=== PATIENT | male | born 1995 | race Caucasian/White ===

== ENCOUNTER 2024-04-10 14:04 | Emergency (ER) | payer MEDICAID ==
[~2024-04-10] VITALS: Ht 182.9 cm; Wt 115.3 kg
[2024-04-10 14:09] VITALS: BP 125/77; PULSE 97; TEMP 98.5; O2SAT 98
[2024-04-10] MEDS ORDERED: ketorolac trometh. 30mg/ml inj. IM ONE (14:50)
[2024-04-10 15:19] VITALS: RESP 16
[2024-04-10] MEDS: ketorolac tromethamine 15mg/ml inj. IM ONE (15:19)
== END 2024-04-10 15:36 | disposition home or self-care (01) ==
LOC: ER 14:05
DX: M25.561 Pain in right knee (principal); M25.461 Effusion, right knee
CPT/HCPCS: 73564; 96372; 99283; J1885

== ENCOUNTER 2025-03-21 08:24 | Emergency (ER) | payer BC ==
[~2025-03-21] VITALS: Ht 182.9 cm; Wt 118.7 kg
[2025-03-21 08:29] VITALS: TEMP 97.6
[2025-03-21 09:12] LABS: BASOPHILS # (AUTO) 0.1 X10'3 (0-0.2); BASOPHILS % (AUTO) 0.5 % (0-1); EOSINOPHILS # (AUTO) 0.2 X10'3 (0-0.9); EOSINOPHILS % (AUTO) 1.4 % (0-6); HEMATOCRIT 42.2 % (42.0-52.0); HEMOGLOBIN 13.9 g/dl (14.0-17.9); LYMPHOCYTES # (AUTO) 3.2 X10'3 (1.1-4.8); LYMPHOCYTES % (AUTO) 25.9 % (21-51); MEAN CORPUSCULAR HEMOGLOBIN 25.6 PG (27.0-31.0); MEAN CORPUSCULAR HGB CONC 32.9 g/dL (33.0-36.5); MEAN CORPUSCULAR VOLUME 77.9 FL (78-98); MEAN PLATELET VOLUME 8.8 FL (7.4-10.4); MONOCYTES # (AUTO) 0.9 X10'3 (0-0.9); MONOCYTES % (AUTO) 7.2 % (2-12); PLATELET COUNT 333 X10'3 (140-440); RED BLOOD COUNT 5.42 X10'6 (4.70-6.10); RED CELL DISTRIBUTION WIDTH 13.7 % (11.5-14.5); WHITE BLOOD COUNT 12.4 X10'3 (4.5-11.0)
[2025-03-21 09:14] LABS: BILIRUBIN,URINE NEGATIVE (Neg); CLARITY,URINE CLEAR (Clear); COLOR,URINE YELLOW (Yellow); GLUCOSE, URINE NEGATIVE (Neg); KETONES,URINE NEGATIVE (Neg); LEUKOCYTE ESTERASE ,URINE NEGATIVE (Neg); NITRITES, URINE NEGATIVE (Neg); OCCULT BLOOD,URINE NEGATIVE (Neg); PROTEIN,URINE NEGATIVE (Neg)
--- NOTE | 2025-03-21 09:18 | Physician Documentation ---
History of Present Illness Chief Complaint: Abdominal Pain Stated Complaint: ABD PAIN Time Seen by MD: 09:12 Primary Medical Doctor: NONE Mode of Arrival: Ambulatory HPI 29-year-old male presents to the ED with three days of right lower quadrant abdominal pain. He states he has also developed nausea last day for what he believes is caused by not eating. Adds that his bowel movements have been on more loose and diarrhea at times. Denies any current vomiting. States he has all of his organs denies any subjective fevers.. States he does have a history of kidney stones denies any history of gallbladder issues or appendix issues Day of Onset: March 21, 2025 Medication Reconciliation Allergies: Coded Allergies: No Known Allergies (Unverified , 03/21/25) Scheduled PRN Hydrocodone Bit/Acetaminophen 5/325 MG ([place] 5/325 MG), 1 TAB PO Q6H PRN for pain Past Medical History Past Medical History: No Pertinent History Past Surgical History: no surgical history Lives with: Family Lives In: Home Occupation: unemployed Review of Systems All Other Systems at this time: Reviewed and Negative ROS As stated above in the HPI, otherwise all systems are reviewed and negative. Physical Exam Vital Signs: Temperature: 97.6, Source: Temporal, Heart Rate: 89, Respiratory Rate: 15, BP: 139/99, Pulse Oximetry: 98, Weight: 118.700 Physical Exam General: Alert, no apparent distress. Respiratory: Lungs clear, no respiratory distress. Cardiovascular: Regular rate and rhythm, no murmurs. Gastrointestinal: Soft, nontender, nondistended. Bowels sounds present. Negative CVA tenderness negative rebound tenderness. Neurologic: Oriented x4. Psychiatric: Normal mood and affect. Skin: Normal color, warm and dry. No edema, no ecchymosis. Progress Results/Orders Results/Orders Vital Signs 03/21/25 03/21/25 03/21/25 08:29 08:43 09:07 Temp 97.6 Pulse 92 89 Resp 18 15 15 B/P (MAP) 175/94 139/99 (112) Pulse Ox 99 98 Laboratory Tests Test 03/21/25 08:45 03/21/25 08:48 Urine Comment White Blood Count 12.4 H Red Blood Count 5.42 Hemoglobin 13.9 L Hematocrit 42.2 Mean Corpuscular Volume 77.9 L Mean Corpuscular Hemoglobin 25.6 L Mean Corpuscular Hemoglobin Concent 32.9 L Red Cell Distribution Width 13.7 Platelet Count 333 Mean Platelet Volume 8.8 Neutrophils (%) (Auto) 65.0 Lymphocytes (%) (Auto) 25.9 Monocytes (%) (Auto) 7.2 Eosinophils (%) (Auto) 1.4 Basophils (%) (Auto) 0.5 Neutrophils # (Auto) 8.0 H Lymphocytes # (Auto) 3.2 Monocytes # (Auto) 0.9 Eosinophils # (Auto) 0.2 Basophils # (Auto) 0.1 CBC Comment Chemistry Comments Medical Decision Making Findings Patient is given IV fluid Protonix and Zofran however he did not report any in increased or decreased pain rather he reports ongoing stabbing right lower quadrant pain. non Radiating. CT scan indicates epiploic appendagitis. Patient does have a mild white count which I could attribute to the vomiting and pain. Going to send him home with pain control and advised to follow up in the outpatient setting. Differential Dx:Considerations: Include: AAA, Angina/AK, Aortic dissection, A ppendicitis, Bowel obstruction, Cholangitis, Cholelithasis, Constipation, Diverticular disease, Esophageal rupture, Esophagitis, Gastritis/PUD, Gastroenteritis, GI hemorrhage, Hernia, Hepatitis, Inflammatory BD, Ischemic bowel, Pancreatitis, Porphyria, Testicular torsion, Trauma, intraabdominal, Urinary obstruction, Urinary tract infection, Urolithiasis, Other Departure Disposition: 01 HOME / SELF CARE / HOMELESS Impression: Primary Impression: Abdominal pain Condition: Stable Discharge Instructions: Abdominal Pain (Nonspecific) Additional Instructions: you have essentially a inflammation in the region where you are having pain. Usually resolves on its own. I sent a prescription to your pharmacy to help with the pain Referrals: NO PRIMARY CARE PROVIDER (PCP) Prescriptions Hydrocodone Bit/Acetaminophen 5/325 MG ([place] 5/325 MG) 5 Mg/325 Mg Tablet 1 TAB PO Q6H PRN for pain, #14 TAB Prov: BRANDON SUAREZ NP 03/21/25 Education Educated: Patient Signature Scribe Signature: t Attestation: The note accurately reflects work and decisions made by me.Brandon Javier NP 03/21/25 18:12 BRANDON SUAREZ NP March 21, 2025 09:18
[2025-03-21 09:22] LABS: UA COLLECTION TYPE URINAL
[2025-03-21 09:26] LABS: ALANINE AMINOTRANSFERASE 26 U/L (12-78); ALBUMIN 3.5 G/DL (3.4-5.0); ALBUMIN/GLOBULIN RATIO 0.9 (1.1-1.5); ALKALINE PHOSPHATASE 91 IU/L (46-116); AMYLASE 32 U/L (25-115); ANION GAP 9 (8-16); ASPARTATE AMINO TRANSFERASE 12 U/L (10-37); BILIRUBIN,TOTAL 0.5 MG/DL (0.1-1.0); BLOOD UREA NITROGEN 11 MG/DL (7-18); BUN/CREATININE RATIO 13.9 (10.0-20.0); CALCIUM 8.1 MG/DL (8.5-10.1); CHLORIDE 106 MMOL/L (99-107); CREATININE 0.79 MG/DL (0.60-1.10); GLUCOSE 136 MG/DL (70-104); LIPASE 29 U/L (16-77); POTASSIUM 3.8 MMOL/L (3.5-5.1); SODIUM 141 MMOL/L (135-145); TOTAL CARBON DIOXIDE 25.8 MMOL/L (24-32); TOTAL PROTEIN 7.5 G/DL (6.4-8.2); eCRCL 151 ML/MIN; eGFR > 90 ML/MIN
[2025-03-21] MEDS: ondansetron/PF 4mg/2ml inj IV ONE (09:41)
[2025-03-21] MEDS: normal saline 1000ML IV soln IVB ONE (09:42)
[2025-03-21] MEDS: pantoprazole 40 MG vial IV ONE (09:44)
--- NOTE | 2025-03-21 10:51 | RADIOLOGY REPORT ---
CT ABDOMEN AND PELVIS WITHOUT CONTRAST CLINICAL HISTORY: RLQ pain TECHNIQUE: Multiple contiguous axial images of the abdomen and pelvis without intravenous contrast. T he images were reformatted degenerate coronal and sagittal reconstructions. All CT scans at this medical facility are performed using dose modulation techniques as appropriate t o a performed exam including the following:Automated exposure control was utilized; adjustment of the MA and/or KV according to patient size; and use of iterative reconstruction technique. Radiation Dose Information: CT Dose: CTDI volume is 35 mGy. Dose-length product is 2012 mGy*cm Comparison: None FINDINGS: Evaluation of the abdomen and pelvis is limited without intravenous contrast. There is diffuse fatty infiltration of the liver. The gallbladder, pancreas, kidneys, adrenal glan ds, and spleen appear within normal limits. There is no gross evidence of abdominal lymphadenopathy. There is no free fluid or free air. The stomach grossly appears unremarkable. The small and large bowel loops demonstrate normal caliber and distribution. There is moderate fat stranding in the right lower quadrant abdomen mostly along t he lateral margins of the cecum.. There is a normal caliber air-filled appendix seen. There are multi ple scattered small right lower quadrant mesenteric lymph nodes, the largest measuring 9 mm in the sh ort axis. The abdominal aorta and IVC appear within normal limits. The bladder appears unremarkable for the degree of distention. Pelvic organ appears within normal woods its. There is no gross evidence of a pelvic mass. There is small amount of free fluid in the pelvis. Lung bases are clear. There is no acute osseous abnormality. IMPRESSION: 1. There is moderate fat stranding in the right lower quadrant abdomen, mostly along the lateral jason ins of the cecum. There is a normal caliber air-filled appendix seen. Findings are atypical for acute appendicitis . Epiploic appendagitis is a consideration. 2. Scattered small right lower quadrant mesenteric lymph nodes may be reactionary. 3. Hepatic steatosis. Critical findings discussed with Dr. Belle by Dr. Dane Hampton via phone on 03/21/2025 10:49 AM. HS:Y
[2025-03-21] MEDS ORDERED: HYDR-3965 PO (11:12)
[2025-03-21 11:44] VITALS: BP 116/56; PULSE 68; RESP 15; O2SAT 96
[2025-03-21] MEDS: HYDROcodone/acetaminophen 10/325mg tab PO ONE (11:44)
== END 2025-03-21 12:00 | disposition home or self-care (01) ==
LOC: ER 08:25
DX: R10.31 Right lower quadrant pain (principal); Z87.442 Personal history of urinary calculi; Z56.0 Unemployment, unspecified
CPT/HCPCS: 36415; 74176; 80053; 81003; 82150; 83690; 85025; 96361; 96374; 96375; 99285; J2405; J2470; J7030

== ENCOUNTER 2025-03-25 08:13 | Emergency (ER) | payer BC ==
[~2025-03-25] VITALS: Ht 182.9 cm; Wt 89.9 kg
[~2025-03-25 08:13] MED LIST: HYDR-3965 PO
--- NOTE | 2025-03-25 08:39 | Physician Documentation ---
History of Present Illness ~ Chief Complaint: Abdominal Pain w/vomiting Stated Complaint: N/V Time Seen by MD: 08:39 Primary Medical Doctor: NONE HPI 29-year-old male, overall healthy, presenting with worsening abdominal pain, diarrhea, now vomiting He tells me that over the last week he has been ill, including right lower abdominal pain and diarrhea. He was seen here in the emergency department recently, without a specific diagnosis. Since that time, he has had worsening symptoms including worsening diarrhea. This morning he says he had at least 8 or 9 episodes of watery stool. Today he also started to have vomiting. He has not been able to keep down any food, fluids or medications this morning. The abdominal pain remains specific to the right lower abdomen, is constant, nothing makes it better, otherwise no significant changes. No fevers, respiratory symptoms, or blood in the stool or vomit. No known sick contacts. Medication Reconciliation Allergies: Coded Allergies: No Known Allergies (Unverified , 03/21/25) Scheduled Ciprofloxacin HCl (Cipro), 1 TAB PO Q12H Metronidazole* (Flagyl*), 1 TAB PO Q8H Scheduled PRN Hydrocodone Bit/Acetaminophen 5/325 MG ([place] 5/325 MG), 1 TAB PO Q6H PRN for pain ONDANSETRON ODT 4mg tablet (Ondansetron Odt), 1 TAB PO Q6H PRN PRN for nausea/vomiting Past Medical History Past Medical History: No Pertinent History Past Surgical History: no surgical history Lives with: Family Lives In: Home Occupation: unemployed Review of Systems Constitutional: Denies: fever Gastrointestinal: Reports: abdominal pain, nausea, vomiting, diarrhea Physical Exam Vital Signs: Temperature: 98.0, Source: Temporal, Heart Rate: 104, Respiratory Rate: 16, BP: 134/93, Pulse Oximetry: 98, Weight: 89.900 Physical Exam General: This is a tired-appearing but otherwise nontoxic appearing young man lying in bed. No vomiting noted while I am in the room HEENT: Atraumatic, oropharynx appears dry Heart: Mild tachycardic, appears regular Lungs: normal work of breathing, normal oxygen saturation on room air Abdomen: Soft, nondistended. The patient has focal tenderness to palpation in the right lower quadrant only, otherwise nontender. No rebound or guarding Neuro: Alert and oriented, no focal deficits Psychiatric: Appears tired but is cooperative with exam Progress Results/Orders Results/Orders Orders - DONNA WELDON MD Ct Abdomen Pelvis (03/25/25 12:01) General Nursing Order (03/25/25 ) Completed Orders - DONNA WELDON MD Cbc/Diff (03/25/25 08:22) BMP (03/25/25 08:22) Lipase (03/25/25 08:22) CMP (03/25/25 08:22) Ondansetron Inj. (Zofran 4mg/2ml Vial) (03/25/25 08:50) Normal Saline 1000ml (Sodium Chloride 10 (03/25/25 08:50) Ct Abdomen Pelvis (03/25/25 12:01) Iohexol 300mg/Ml 100ml Inj. (Omnipaque-3 (03/25/25 11:47) Ketorolac Trometh 30mg/Ml Vial (Toradol (03/25/25 12:20) Ondansetron Inj. (Zofran 4mg/2ml Vial) (03/25/25 12:55) Ciprofloxacin Tablet (Cipro Tablet) (03/25/25 13:05) Metronidazole Tablet (Flagyl Tablet) (03/25/25 13:05) Medications Received in ER Medications (Trade) Dose Ordered Sig/Radha Route PRN Reason Start Time Stop Time Status Last Admin Dose Admin (Toradol inj. 30mg/ml) 30 mg ONCE ONCE IV 03/25/25 12:20 03/25/25 12:21 DC 03/25/25 12:42 30 MG (Zofran 4mg/2ml vial) 4 mg ONCE ONCE IV 03/25/25 12:55 03/25/25 12:56 DC 03/25/25 13:24 4 MG (Cipro tablet) 500 mg ONCE ONCE PO 03/25/25 13:05 03/25/25 13:08 DC 03/25/25 13:25 500 MG (Flagyl tablet) 500 mg ONCE ONCE PO 03/25/25 13:05 03/25/25 13:08 DC 03/25/25 13:25 500 MG Vital Signs 03/25/25 03/25/25 03/25/25 03/25/25 08:19 08:40 08:43 09:18 Temp 98.0 Pulse 104 102 99 Resp 16 16 12 B/P (MAP) 134/93 123/83 (96) 133/86 (102) Pulse Ox 98 97 94 O2 Flow Rate 0 0 03/25/25 14:01 Temp 98.0 Pulse 80 Resp 16 B/P (MAP) 127/84 Pulse Ox 99 Laboratory Tests Test 03/25/25 08:28 White Blood Count 17.3 H Red Blood Count 5.61 Hemoglobin 14.5 Hematocrit 43.3 Mean Corpuscular Volume 77.2 L Mean Corpuscular Hemoglobin 25.8 L Mean Corpuscular Hemoglobin Concent 33.4 Red Cell Distribution Width 13.6 Platelet Count 347 Mean Platelet Volume 8.7 Neutrophils (%) (Auto) 84.9 H Lymphocytes (%) (Auto) 7.9 L Monocytes (%) (Auto) 6.1 Eosinophils (%) (Auto) 0.8 Basophils (%) (Auto) 0.3 Neutrophils # (Auto) 14.7 H Lymphocytes # (Auto) 1.4 Monocytes # (Auto) 1.1 H Eosinophils # (Auto) 0.1 Basophils # (Auto) 0.0 CBC Comment Sodium Level 137 Potassium Level 4.0 Chloride Level 103 Carbon Dioxide Level 24.8 Anion Gap 9 Blood Urea Nitrogen 11 Creatinine 1.02 Estimated GFR/1.73 m2 86 BUN/Creatinine Ratio 10.8 Glucose Level 157 H Calcium Level 8.8 Total Bilirubin 0.7 Aspartate Amino Transf (AST/SGOT) 20 Alanine Aminotransferase (ALT/SGPT) 35 Alkaline Phosphatase 91 Total Protein 8.3 H Albumin 3.9 Globulin 4.4 H Albumin/Globulin Ratio 0.9 L Lipase 38 Chemistry Comments Re-Evaluation Re-Evaluation : Re-Evaluation Time: 11:01 Re-Evaluation: Unchanged Progress The patient continues to have pain, states his nausea improved but now has returned. I had a long shared decision-making conversation with them regarding the possibilities of a repeat CT scan versus treatment with antibiotics and o ther symptomatic treatment. After this discussion, he would like to proceed with a repeat CT scan, after understanding the risks of radiation exposure. EKG/XRAY/CT/US/VASC/MRI CT : Impression I personally reviewed the CT scan, and this shows inflammatory changes in the right lower abdomen, but the appendix appears normal and there was no bowel ob struction or evidence of abscess Medical Decision Making Additional info obtained from: old records Findings Per chart review, the patient was seen here in the emergency department 4 days ago, for abdominal pain and diarrhea. He had a CT scan that showed mild inflammatory changes in the right lower quadrant with a normal appendix. Mild leukocytosis. He was discharged with symptomatic treatment. Diff Dx N/V/D:Considerations: Include: Dehydration, Diarrhea - bacterial, Diarrhea - parasitic, Diarrhea - viral, Electrolyte imbalance, Food poisoning, Gastroenteritis, GI bleed, Hypovolemia, Inflammatory BD, Renal failure Additional Comments Here in the ED, the patient presents with ongoing right lower quadrant abdominal pain, diarrhea, and now he has developed a vomiting. An IV was established and he was given Zofran and IV fluids for hydration. Labs returned with a slightly worsening leukocytosis, but no other acute abnormality. After shared decision- making conversation we proceeded with a repeat CT scan given his ongoing right lower quadrant pain. This shows inflammatory changes but no appendicitis or other surgical emergency. Overall his presentation seems most consistent with a viral or bacterial colitis or enteritis. He will be treated with oral antibiotics and given Zofran for nausea. Return precautions given if he has a uncontrollable vomiting or other worsening symptoms. Departure Time of Disposition: 13:42 Disposition: HOME / SELF CARE / HOMELESS Impression: Primary Impression: Nausea vomiting and diarrhea Additional Impression: Enteritis Condition: Improved Discharge Instructions: Colitis Referrals: NO PRIMARY CARE PROVIDER (PCP) Prescriptions ONDANSETRON ODT 4mg tablet (ONDANSETRON ODT) 4 Mg Tab.rapdis 1 TAB PO Q6H PRN PRN for nausea/vomiting for 5 Days, #20 TAB 0 Refills Prov: DONNA WELDON MD 03/25/25 Metronidazole* (Flagyl*) 500 Mg Tablet 1 TAB PO Q8H for 7 Days, #21 TAB Prov: DONNA WELDON MD 03/25/25 Ciprofloxacin HCl (Cipro) 500 Mg Tablet 1 TAB PO Q12H for 7 Days, #14 TAB Prov: DONNA WELDON MD 03/25/25 Education Educated: Patient Educated regarding: diagnosis, need for follow up Signature Scribe Signature: bethanie Attestation: DONNA Peres MD March 25, 2025 08:39
[2025-03-25 08:49] LABS: BASOPHILS % (AUTO) 0.3 % (0-1); EOSINOPHILS # (AUTO) 0.1 X10'3 (0-0.9); EOSINOPHILS % (AUTO) 0.8 % (0-6); HEMATOCRIT 43.3 % (42.0-52.0); HEMOGLOBIN 14.5 g/dl (14.0-17.9); LYMPHOCYTES # (AUTO) 1.4 X10'3 (1.1-4.8); LYMPHOCYTES % (AUTO) 7.9 % (21-51); MEAN CORPUSCULAR HEMOGLOBIN 25.8 PG (27.0-31.0); MEAN CORPUSCULAR HGB CONC 33.4 g/dL (33.0-36.5); MEAN CORPUSCULAR VOLUME 77.2 FL (78-98); MEAN PLATELET VOLUME 8.7 FL (7.4-10.4); MONOCYTES # (AUTO) 1.1 X10'3 (0-0.9); MONOCYTES % (AUTO) 6.1 % (2-12); NEUTROPHILS # (AUTO) 14.7 X10'3 (1.8-7.7); NEUTROPHILS % (AUTO) 84.9 % (42-75); PLATELET COUNT 347 X10'3 (140-440); RED BLOOD COUNT 5.61 X10'6 (4.70-6.10); RED CELL DISTRIBUTION WIDTH 13.6 % (11.5-14.5); WHITE BLOOD COUNT 17.3 X10'3 (4.5-11.0)
[2025-03-25 08:59] LABS: ALANINE AMINOTRANSFERASE 35 U/L (12-78); ALBUMIN 3.9 G/DL (3.4-5.0); ALBUMIN/GLOBULIN RATIO 0.9 (1.1-1.5); ALKALINE PHOSPHATASE 91 IU/L (46-116); ANION GAP 9 (8-16); ASPARTATE AMINO TRANSFERASE 20 U/L (10-37); BILIRUBIN,TOTAL 0.7 MG/DL (0.1-1.0); BLOOD UREA NITROGEN 11 MG/DL (7-18); BUN/CREATININE RATIO 10.8 (10.0-20.0); CALCIUM 8.8 MG/DL (8.5-10.1); CHLORIDE 103 MMOL/L (99-107); CREATININE 1.02 MG/DL (0.60-1.10); GLUCOSE 157 MG/DL (70-104); LIPASE 38 U/L (16-77); SODIUM 137 MMOL/L (135-145); TOTAL CARBON DIOXIDE 24.8 MMOL/L (24-32); TOTAL PROTEIN 8.3 G/DL (6.4-8.2); eCRCL 117 ML/MIN; eGFR 86 ML/MIN
[2025-03-25] MEDS: ondansetron/PF 4mg/2ml inj IV ONE ×2 (09:09→13:24)
[2025-03-25] MEDS: normal saline 1000ml 1,000 ML IV ONE (09:10)
[2025-03-25] MEDS ORDERED: iohexol 300mg/ml 100ml inj. ONE (11:47)
--- NOTE | 2025-03-25 12:29 | RADIOLOGY REPORT ---
Exam: CT CT ABDOMEN PELVIS W/ IV CONTRAST History: RLQ pain, worsening, diarrhea TECHNIQUE: Multiple contiguous axial CT images of the abdomen and pelvis were obtained with intraveno us contrast. The images were reformatted to generate coronal and sagittal reconstructions. 100 cc of Omnipaque 350 contrast was injected intravenously. All CT scans at this medical facility are performed using dose modulation techniques as appropriate t o a performed exam including the following:Automated exposure control was utilized; adjustment of the MA and/or KV according to patient size; and use of iterative reconstruction technique. Radiation Dose Information: CT Dose: CTDI volume is 34 mGy. Dose-length product is 1966 mGy*cm Comparison: CT CT ABDOMEN PELVIS on DOS: 03/21/25 FINDINGS: There is fatty infiltration of the liver. The gallbladder, pancreas, kidneys, adrenal glands, and sp marvin appear within normal limits. Again seen are multiple nonspecific subcentimeter right lower quadrant mesenteric lymph nodes measur ing up to 9 mm. There is no free fluid or free air. The stomach grossly appears unremarkable. The small and large bowel loops demonstrate normal caliber. There are multiple fluid-filled small bowel loops. There is mural enhancement and mild thickening i n the terminal ileum. There has been some interval decrease in fat stranding in the right lower quadrant abdomen along the lateral margins of the cecum. Again seen is a normal caliber air-filled appendix. The abdominal aorta and IVC appear within normal limits. The bladder appears within normal limits the degree of distention. Pelvic organ is unremarkable. Ther e is no evidence of a pelvic mass or lymphadenopathy. There is no free fluid collection. Lung bases are clear. There is no acute osseous abnormality. IMPRESSION: 1. There are multiple fluid-filled small bowel loops. There is mural enhancement and mild thickening in the terminal ileum. Findings are suggestive of enteritis. Clinical correlation for inflammatory melissa wel disease is also recommended.. 2. There has been some interval decrease in fat stranding in the right lower quadrant abdomen along t he lateral margins of the cecum. Again seen is a normal caliber air-filled appendix. 3. Redemonstrated are multiple nonspecific subcentimeter right lower quadrant mesenteric lymph nodes. 4. Hepatic steatosis. HS:Y
[2025-03-25] MEDS: ketorolac trometh 30MG/ML vial 30 MG/ML VIAL IV ONE (12:42)
[2025-03-25] MEDS: metroNIDAZOLE 500mg tablet PO ONE (13:25)
[2025-03-25] MEDS: ciprofloxacin 250mg tablet PO ONE (13:25)
[2025-03-25] MEDS ORDERED: METR-159 PO (13:45)
[2025-03-25] MEDS ORDERED: ONDA-243 PO (13:45)
[2025-03-25] MEDS ORDERED: CIPR-259 PO (13:45)
[2025-03-25 14:01] VITALS: BP 127/84; PULSE 80; RESP 16; TEMP 98; O2SAT 99
== END 2025-03-25 14:00 | disposition home or self-care (01) ==
LOC: ER 08:14
DX: K52.9 Noninfective gastroenteritis and colitis, unspecified (principal); R11.2 Nausea with vomiting, unspecified; R19.7 Diarrhea, unspecified; Z56.0 Unemployment, unspecified
CPT/HCPCS: 36415; 74177; 80053; 83690; 85025; 96361; 96374; 96375; 96376; 99285; J1885; J2405; J7030; Q9967

== ENCOUNTER 2025-03-30 17:35 | Inpatient (IN) | payer BC ==
[~2025-03-30] VITALS: Ht 182.9 cm; Wt 116.8 kg
[~2025-03-30 17:35] MED LIST changes: +CIPR-259 PO; +METR-159 PO; +ONDA-243 PO
--- NOTE | 2025-03-30 18:38 | Physician Documentation ---
History of Present Illness ~ Chief Complaint: Flank Pain Stated Complaint: ABDOMINAL PAIN Time Seen by MD: 18:32 Primary Medical Doctor: NONE HPI Patient presents to the emergency room with right lower quadrant pain that has now traveled to his right flank and traveling into his right testicle. This is 3rd visit for similar complaint. Initially CT scan was performed which showed some inflammation in his terminal ileum, 2nd CT scan showed similar results. He was put on a course of pain medicine as well as Cipro Flagyl. He reports compliance with the Cipro Flagyl. Subjective fevers. Positive nausea and vomiting. Loose bowel movements. Positive dysuria. It seems to all be progressing over the past two weeks. Medication Reconciliation Allergies: Coded Allergies: No Known Allergies (Unverified , 03/30/25) Scheduled Ciprofloxacin HCl (Cipro), 1 TAB PO Q12H Metronidazole* (Flagyl*), 1 TAB PO Q8H Scheduled PRN Hydrocodone Bit/Acetaminophen 5/325 MG ([place] 5/325 MG), 1 TAB PO Q6H PRN for pain ONDANSETRON ODT 4mg tablet (Ondansetron Odt), 1 TAB PO Q6H PRN PRN for nausea/vomiting Past Medical History Past Medical History: No Pertinent History Past Surgical History: no surgical history Lives with: Family Lives In: Home Occupation: unemployed Review of Systems ROS All review of systems negative except as per HPI Physical Exam Vital Signs: Temperature: 98.4, Source: Oral, Heart Rate: 96, Respiratory Rate: 18, BP: 133/89, Pulse Oximetry: 98, Weight: 116.850 Oxygen Flow Rate: 0 Physical Exam General: Patient is awake, alert, oriented x4 in no acute distress Head: Normocephalic and atraumatic. Eyes: Conjunctival normal. EOMI. PERRL. ENT: Mucous membranes dry. Neck: Supple, trachea is midline. Chest: Clear to auscultation bilaterally without rales, rhonchi, or wheezes. There is no accessory muscle use or retractions. Cardiac: Tachycardic and regular without murmurs, gallops, or rubs. Abd: Soft, nondistended, tenderness to palpation to right lower quadrant and right flank Progress Results/Orders Results/Orders Orders - PAUL NAPIER MD Culture Blood (03/30/25 18:41) Ct Abdomen Pelvis (03/30/25 19:45) Zithromax 500 Mg In Ns 250 Mls (03/30/25 21:45) Rocephin 1 Gm In 50ml D5w (03/30/25 21:45) Page Hospitalist (03/30/25 21:44) Fill Out Med Reconciliation (03/30/25 21:44) Completed Orders - PAUL NAPIER MD Cbc/Diff (03/30/25 18:41) MG (03/30/25 18:41) Normal Saline 1000ml (Sodium Chloride 10 (03/30/25 18:45) Procalcitonin (03/30/25 18:41) BMP (03/30/25 18:41) Lacticsepsis (03/30/25 18:41) Ondansetron Inj. (Zofran 4mg/2ml Vial) (03/30/25 18:45) Morphine 4mg/Ml Inj. (Morphine Inj.) (03/30/25 18:45) Ua W/Microscopic, Cult If Ind (03/30/25 18:46) Ct Abdomen Pelvis (03/30/25 19:45) Iohexol 300mg/Ml 100ml Inj. (Omnipaque-3 (03/30/25 19:52) Medications Received in ER Medications (Trade) Dose Ordered Sig/Radha Route PRN Reason Start Time Stop Time Status Last Admin Dose Admin (sodium chloride 1000ml IV soln) 2,000 ml ONCE ONCE IV 03/30/25 18:45 03/30/25 18:46 DC 03/30/25 18:55 2,000 ML (Zofran 4mg/2ml vial) 8 mg ONCE ONCE IV 03/30/25 18:45 03/30/25 18:46 DC 03/30/25 18:56 8 MG (morphine inj.) 4 mg ONCE ONCE IV 03/30/25 18:45 03/30/25 18:46 DC 03/30/25 18:56 4 MG Vital Signs 03/30/25 03/30/25 03/30/25 03/30/25 17:40 18:36 18:56 19:26 Temp 98.4 98.4 Pulse 105 96 Resp 18 18 14 14 B/P (MAP) 165/93 133/89 (104) Pulse Ox 100 98 O2 Flow Rate 0 03/30/25 03/30/25 19:31 20:03 Temp 98.4 Pulse 105 Resp 14 16 B/P (MAP) 146/92 (110) Pulse Ox 98 O2 Flow Rate 0 Laboratory Tests Test 03/30/25 18:46 03/30/25 18:59 Urine Specimen Description Cln catch midstream Urine Color Yellow Urine Clarity Clear Urine pH 7.5 Urine Specific [place] >=1.030 Urine Protein Trace Urine Glucose (UA) Negative Urine Ketones Negative Urine Occult Blood Negative Urine Nitrite Negative Urine Bilirubin Negative Urine Urobilinogen 0.2 Urine Leukocyte Esterase Negative Urine RBC 0-2 Urine WBC None seen Urine Squamous Epithelial Cells None seen Urine Bacteria None seen Urine Mucus None seen Urine Culture Indicated Not ind Volume Urine Centrifuged 10 ml Urine Comment White Blood Count 10.3 Red Blood Count 4.94 Hemoglobin 12.7 L Hematocrit 38.2 L Mean Corpuscular Volume 77.3 L Mean Corpuscular Hemoglobin 25.8 L Mean Corpuscular Hemoglobin Concent 33.3 Red Cell Distribution Width 13.2 Platelet Count 303 Mean Platelet Volume 8.5 Neutrophils (%) (Auto) 77.2 H Lymphocytes (%) (Auto) 10.0 L Monocytes (%) (Auto) 11.8 Eosinophils (%) (Auto) 0.6 Basophils (%) (Auto) 0.4 Neutrophils # (Auto) 8.0 H Lymphocytes # (Auto) 1.0 L Monocytes # (Auto) 1.2 H Eosinophils # (Auto) 0.1 Basophils # (Auto) 0.0 CBC Comment Sodium Level 138 Potassium Level 3.8 Chloride Level 103 Carbon Dioxide Level 26.5 Anion Gap 9 Blood Urea Nitrogen 11 Creatinine 1.48 H Estimated GFR/1.73 m2 56 BUN/Creatinine Ratio 7.4 L Glucose Level 110 H Lactic Acid Level 1.2 Calcium Level 8.5 Magnesium Level 1.8 Albumin 3.5 Procalcitonin 0.16 Chemistry Comments Microbiology Date/Time Source Procedure Growth Status 03/30/25 19:02 Blood Arm Left Blood Culture - Preliminary NEGATIVE (LESS THAN 24 HOURS) Resulted Medical Decision Making Findings Patient presented to the emergency room with continued right lower quadrant pain. He has been treated for empirical appendicitis recently. No fevers. He states he now has a different pain that has radiating to his testicle and he believes it may be a kidney stone. Also endorses cough. Differentials include but are not limited to appendicitis kidney stone diverticulitis intra-abdominal abscess sepsis therefore emergent labs and imaging indicated. Labs show improved white blood cell count and repeat CT scans confirms the diagnosis of kidney stone. Of note patient has pneumonia and he is on Cipro and Flagyl and reports compliance. This is new compared to previous. He is also suffering from kidney injury. I suspect that the acute kidney injury from dehydration he is clinically he is dehydrated and IV fluids has been initiated. As he has already been on Cipro with developing pneumonia offered admission and given risks versus benefits patient would prefer to be admitted. IV antibiotics and IV fluids initiated. Departure Admitted to Inpatient Unit: yes, to hospitalist Impression: Primary Impression: Acute kidney injury Additional Impressions: Kidney stone Pneumonia Condition: Guarded Referrals: NO PRIMARY CARE PROVIDER (PCP) Signature Scribe Signature: No scribe Attestation: The note accurately reflects work and decisions made by me.Paul Napier MD 03/30/25 21:51 PAUL NAPIER MD March 30, 2025 18:38
[2025-03-30] MEDS: normal saline 1000ML IV soln IV ONE (18:55)
[2025-03-30] MEDS: ondansetron/PF 4mg/2ml inj IV ONE (18:56)
[2025-03-30] MEDS: morphine 4 MG/ML inj SYRINge IV ONE (18:56)
[2025-03-30 19:15] LABS: BASOPHILS % (AUTO) 0.4 % (0-1); EOSINOPHILS # (AUTO) 0.1 X10'3 (0-0.9); EOSINOPHILS % (AUTO) 0.6 % (0-6); HEMATOCRIT 38.2 % (42.0-52.0); HEMOGLOBIN 12.7 g/dl (14.0-17.9); MEAN CORPUSCULAR HEMOGLOBIN 25.8 PG (27.0-31.0); MEAN CORPUSCULAR HGB CONC 33.3 g/dL (33.0-36.5); MEAN CORPUSCULAR VOLUME 77.3 FL (78-98); MEAN PLATELET VOLUME 8.5 FL (7.4-10.4); MONOCYTES # (AUTO) 1.2 X10'3 (0-0.9); MONOCYTES % (AUTO) 11.8 % (2-12); NEUTROPHILS % (AUTO) 77.2 % (42-75); PLATELET COUNT 303 X10'3 (140-440); RED BLOOD COUNT 4.94 X10'6 (4.70-6.10); RED CELL DISTRIBUTION WIDTH 13.2 % (11.5-14.5); WHITE BLOOD COUNT 10.3 X10'3 (4.5-11.0)
[2025-03-30 19:19] LABS: BILIRUBIN,URINE NEGATIVE (Neg); CLARITY,URINE CLEAR (Clear); COLOR,URINE YELLOW (Yellow); GLUCOSE, URINE NEGATIVE (Neg); KETONES,URINE NEGATIVE (Neg); LEUKOCYTE ESTERASE ,URINE NEGATIVE (Neg); OCCULT BLOOD,URINE NEGATIVE (Neg); PH,URINE 7.5 (4.8-8.0); PROTEIN,URINE TRACE mg/dl (Neg); UROBILINOGEN,URINE 0.2 E.U/dL (0.2-1.0)
[2025-03-30 19:24] LABS: NITRITES, URINE NEGATIVE (Neg); UA COLLECTION TYPE CLN CATCH MIDSTREAM
[2025-03-30 19:26] LABS: ALBUMIN 3.5 G/DL (3.4-5.0); ANION GAP 9 (8-16); BLOOD UREA NITROGEN 11 MG/DL (7-18); BUN/CREATININE RATIO 7.4 (10.0-20.0); CALCIUM 8.5 MG/DL (8.5-10.1); CHLORIDE 103 MMOL/L (99-107); CREATININE 1.48 MG/DL (0.60-1.10); GLUCOSE 110 MG/DL (70-104); MAGNESIUM 1.8 MG/DL (1.5-2.4); POTASSIUM 3.8 MMOL/L (3.5-5.1); SODIUM 138 MMOL/L (135-145); TOTAL CARBON DIOXIDE 26.5 MMOL/L (24-32); eCRCL 81 ML/MIN; eGFR 56 ML/MIN
[2025-03-30 19:31] LABS: RBC,URINE 0-2 /HPF (0-2); WBC,URINE NONE SEEN /HPF (0-4)
[2025-03-30 19:32] LABS: BACTERIA,URINE NONE SEEN /HPF (Neg); MUCUS STRANDS NONE SEEN /LPF (Neg); SQUAMOUS EPITHELIAL CELL,UR NONE SEEN /LPF (FEW)
[2025-03-30] MEDS ORDERED: iohexol 300mg/ml 100ml inj. ONE (19:52)
--- NOTE | 2025-03-30 20:43 | RADIOLOGY REPORT ---
CLINICAL HISTORY: right abd pain nausea and vomiting TECHNIQUE: CT of the abdomen and pelvis was performed with intravenous contrast. This exam was perfor med according to our departmental dose optimization program. Up-to-date CT equipment and radiation do se reduction techniques are utilized as appropriate. CTDIVol: 34.71+ 0.21 mGy DLP: 2175.32 mGy-cm WID: COMPARISON: CT CT ABDOMEN PELVIS W/ IV CONTRAST on DOS: 03/25/25 FINDINGS: Lower Thorax: Mild left pleural effusion. Normal-sized heart. Clustered nodular and consolidative op acities in the lingula. A few patchy ground-glass opacities in the right lower lobe. Liver and Biliary system: Mild hepatomegaly measuring 19 cm craniocaudal. Otherwise unremarkable. Spleen: Mild splenomegaly. Adrenal Glands and Kidneys: Normal adrenal glands. Normal left kidney. There is a 1-2 mm calculus in the distal right ureter causing mild right hydroureteronephrosis and delayed right nephrogram. Pancreas and Retroperitoneum: Unremarkable. Aorta and Major Vessels: Unremarkable. Bowel, Mesentery and Peritoneal space: Normal caliber small and large bowel. Normal appendix. There i s mild wall thickening and mucosal enhancement of the terminal ileum. No free air or fluid collection . Pelvis: Unremarkable. Abdominal wall and Osseous Structures: No destructive osseous lesion. Small disc osteophyte complex a t L4-L5. Tiny fat containing umbilical hernia. IMPRESSION: 1. Obstructing 1-2 mm calculus in the distal right ureter causing mild right hydroureteronephrosis an d delayed right nephrogram. 2. Mild wall thickening and enhancement of the terminal ileum which could be infectious or inflammato ry terminal ileitis. 3. A few patchy ground-glass opacities in the right lower lobe and clustered nodular and consolidativ e opacities in the lingula likely multifocal pneumonia. 4. Mild hepatosplenomegaly.
[2025-03-30] MEDS: CefTRIAXone/D5W-Rocephin 1gm 50 ML IV ONE (22:09)
[2025-03-30] MEDS ORDERED: HYDROcodone/acetaminophen 10/325mg tab PO PRN (22:10)
[2025-03-30] MEDS ORDERED: potassium Cl 20 mEq SR tablet PO PRN ×2 (22:10)
[2025-03-30] MEDS ORDERED: magnesium sulf-water 4G/100mL 100 ML IV PRN (22:10)
[2025-03-30] MEDS ORDERED: potassium Cl 40MEQ/1/2NS 520ml 520 ML IV PRN (22:10)
[2025-03-30] MEDS ORDERED: mag hydrox/Alum hydrox/simeth 30ml oral suspension PO PRN (22:10)
[2025-03-30] MEDS ORDERED: HYDROcodone/acetaminophen 5mg/325mg tablet PO PRN (22:10)
[2025-03-30] MEDS ORDERED: ondansetron/PF 4mg/2ml inj IV PRN (22:10)
[2025-03-30] MEDS ORDERED: magnesium hydroxide 30ml (MOM) UD suspension PO PRN (22:10)
[2025-03-30] MEDS ORDERED: magnesium Cl slow-release 64mg tablet PO PRN (22:10)
[2025-03-30] MEDS ORDERED: magnesium sulf-water 2g/50mL 50 ML IV PRN (22:10)
[2025-03-30] MEDS ORDERED: acetaminophen 325mg tablet PO PRN (22:10)
[2025-03-30 22:55] VITALS: BP 139/80; PULSE 98; RESP 18; TEMP 99; O2SAT 97
--- NOTE | 2025-03-30 22:55 | HISTORY AND PHYSICAL-Residence ---
History & Physical Providers to CC Resident Creating Document: SINAN HODGSON, RES ~ History of Present Illness Primary Medical Doctor: NONE Reason for Admit\Complaint: Right flank pain History of Present Illness 29-year-old male patient without significant past medical history came to the hospital with chief complaint of right flank pain. The patient endorses that approximately 1-1/2 week ago he started having pain localized in the right lower abdomen, sharp type, 8/10 in intensity, without radiation reason for which she decided to come to the emergency department. At that time CT scan was obtained due to concern of acute appendicitis with negative result. The patient was discharged home with pain medication. After two days with the resolution of symptoms the patient decided to come back again to the emergency department, another CT scan was obtained the patient was diagnosed with bacterial colitis reason for which the patient was discharged with antibiotics and pain medication based on ciprofloxacin and metronidazole. After seven days of treatment with the antibiotics the patient did not report any improvement, associated to his pain the patient now endorses pain localized in the right flank with radiation to the right testicle, 10/10 in intensity, sharp type, associated to that the patient also endorses some pain with micturition. The patient currently denies any chest pain, shortness of breath, palpitations. As per patient he has not been sexually active for three years. Allergies: Coded Allergies: No Known Allergies (Unverified , 03/30/25) Home Medications Home Medications Active Ondansetron Odt (Ondansetron HCl) 4 Mg Tab.rapdis 1 Tab PO Q6H PRN PRN 5 Days Flagyl* (Metronidazole) 500 Mg Tablet 1 Tab PO Q8H 7 Days Cipro (Ciprofloxacin) 500 Mg Tablet 1 Tab PO Q12H 7 Days [place] 5/325 MG (Acetaminophen/Hydrocodone Bitart) 5 Mg/325 Mg Tablet 1 Tab PO Q6H PRN Past Medical History Past Medical History No past medical history Past Surgical History Surgical History Comment The past surgical history Past Social History Smoking: Non-Smoker Alcohol Use: Rarely (The patient endorses social drinking chest in holidays.) Drug Use: Marijuana (Last time he used marijuana three years ago.) Lives with: Other (The patient reports that he lives with his friend and son.) Lives In: Home Occupation: employed (As per patient he works in [employer]) ROS All Other Systems: Reviewed and Negative Exam Vitals: Vital Signs Date Time Temp Pulse Resp B/P (MAP) Pulse Ox O2 Delivery O2 Flow Rate FiO2 03/30/25 20:03 16 03/30/25 19:31 98.4 105 146/92 (110) 98 0 Physical exam: General: Well alert, well oriented, not confused, not agitated, not in acute distress, well cooperated during the physical. HEENT: Conjunctive are pink, sclerae clear, no icterus, pupil is equal in both sides, reactive to light, no ear discharge, no pharyngeal erythema or an edema. Neck: Supple, no JVD, no lymphadenopathy and thyromegaly. Chest: Equal air entry on both lungs, no additional sounds no rhonchi no wheezing at the moment. Cardiovascular: S1-S2 regular sinus rhythm and, regular rate, no gallops, no rubs, no murmurs Abdomen: No visible peristalsis, Bowel sounds present on auscultation, soft, tenderness at the level of the right lower quadrant. Extremities: No obvious deformities, no pitting edema bilaterally, capillary refill intact, peripheral pulsations are intact on both sides, patient mentioned pain of right testicle, no signs of rash, or secretions. Central Nervous System: No focal neurological deficits, no motor or sensory weakness in all 4 extremities, could move all 4 extremities, 2+ deep tendon reflexes, negative Babinski. Musculoskeletal: No joint swelling, deformities, inflammations, and no scoliosis, presence of tenderness in the right costovertebral angle. Skin: Warm and dry. Diagnostic Data Last Recorded Lab Results: 03/30/25185803/30/251858 Advance Care Planning Advanced Care plannin - 30 Minutes (I spent a total of 17 minutes on reviewing various resuscitative measures/ACP with the patient at the time of admission. The patient has decided on a full code status.) Additional Plan Assessment and plan: 29-year-old male patient came to the hospital with chief complaint of right flank pain. Right flank pain: Right kidney stone: The patient came to the hospital with chief complaint of right flank pain, radiation to the right testicle. Urinalysis negative for urinary tract infection. CT scan abdomen/pelvis: Obstructing 1-2 mm calculus in the distal right ureter causing mild right hydroureteronephrosis and delayed right nephrogram. Mild wall thickening and enhancement of the terminal ileum which could be infectious or inflammatory terminal ileitis. A few patchy ground-glass opacities in the right lower lobe and clustered nodular and consolidative opacities in the lingula likely multifocal pneumonia. Mild hepatosplenomegaly. Tamsulosin 0.4 mg. The patient is currently on ceftriaxone 1 g IV daily. Culturelle [address] mmu b.i.d. Bacterial pneumonia: Covering Gram-positive and Gram-negative microorganisms: CT scan abdomen/pelvis: A few patchy ground-glass opacities in the right lower lobe and clustered nodular and consolidative opacities in the lingula likely multifocal pneumonia. Mild hepatosplenomegaly. Follow-up chest x-ray and CT scan of the chest. Follow-up blood culture. Ceftriaxone 1 g IV daily. Azithromycin 500 mg daily. Culturelle [address]172 mmu b.i.d. Duonebs q.6h PRN. Methylprednisolone 125 mg IV once. Methylprednisolone 30 mg IV b.i.d. Acute kidney injury likely secondary to renal tubular stasis: Creatinine 1.48, BUN/creatinine ratio 7.4. Follow-up urine lytes. NS at 100 mL/hour. Microcytic hypochromic anemia: Hemoglobin 12.7, hematocrit 38.2, MCV 77.3. Follow-up iron studies. Hyperglycemia: Glucose 110. Follow-up hemoglobin A1c. Code status: Full code DVT prophylaxis: None Analgesia/sedation: [place] Line/tube: PIV GI prophylaxis: None Nutrition: Regular diet PT: None Prognosis: Guarded Disposition: The patient will be admitted to surgical floor. Sinan Reyes Internal Medicine Resident [facility] Addendum I personally reviewed the chart, labs and imaging and reviewed the patient with the team. I agree with the assessment and plan as documented by the resident. Patient was seen through remote audio-visual assessment through HIPAA compliance setup. Date of Service: March 30, 2025 Billing Provider: YANI SALCEDO MD, FRANCO LUIS, [facility] March 30, 2025 22:55 YANI SALCEDO MD March 31, 2025 03:28
[2025-03-30] MEDS: normal saline 1000ml 1,000 ML IV SCH (23:02)
[2025-03-30] MEDS: azithromycin/NS 500mg/250ml 250 ML IV ONE (23:09)
[2025-03-30 23:30] VITALS: RESP 18; O2SAT 97
[2025-03-31] MEDS: tamsulosin 0.4mg capsule PO SCH (02:53)
[2025-03-31] MEDS: methylPREDNISolone sod succ 125mg/2ml vial IV ONE (02:54)
[2025-03-31 04:26] LABS: BASOPHILS % (AUTO) 0.3 % (0-1); EOSINOPHILS # (AUTO) 0.1 X10'3 (0-0.9); EOSINOPHILS % (AUTO) 0.8 % (0-6); HEMATOCRIT 36.4 % (42.0-52.0); HEMOGLOBIN 12.1 g/dl (14.0-17.9); LYMPHOCYTES # (AUTO) 1.3 X10'3 (1.1-4.8); LYMPHOCYTES % (AUTO) 13.8 % (21-51); MEAN CORPUSCULAR HGB CONC 33.4 g/dL (33.0-36.5); MEAN CORPUSCULAR VOLUME 77.9 FL (78-98); MEAN PLATELET VOLUME 8.3 FL (7.4-10.4); MONOCYTES # (AUTO) 0.8 X10'3 (0-0.9); MONOCYTES % (AUTO) 8.6 % (2-12); NEUTROPHILS # (AUTO) 7.2 X10'3 (1.8-7.7); NEUTROPHILS % (AUTO) 76.5 % (42-75); PLATELET COUNT 273 X10'3 (140-440); RED BLOOD COUNT 4.67 X10'6 (4.70-6.10); RED CELL DISTRIBUTION WIDTH 13.4 % (11.5-14.5); WHITE BLOOD COUNT 9.4 X10'3 (4.5-11.0)
[2025-03-31 04:40] LABS: OSMOLALITY 288 MOSM/K (280-300)
[2025-03-31 04:44] LABS: % IRON SATURATION 8 % (11-46); IRON 17 UG/DL (53-167); TOTAL IRON BINDING CAPACITY 211 UG/DL (259-388)
--- NOTE | 2025-03-31 04:46 | RADIOLOGY REPORT ---
CHEST RADIOGRAPH Indication: Pneumonia Technique: Single frontal view of the chest was obtained COMPARISON: None FINDINGS: Lines and Tubes: None Lungs: Patchy airspace opacities in the left mid and lower lung. Pleura: No effusion. No pneumothorax. Cardiomediastinal contours: Unremarkable Bones: Unremarkable IMPRESSION: Patchy airspace opacities in the left mid and lower lung may represent pneumonia.
[2025-03-31 04:59] LABS: ALANINE AMINOTRANSFERASE 25 U/L (12-78); ALBUMIN/GLOBULIN RATIO 0.8 (1.1-1.5); ALKALINE PHOSPHATASE 66 IU/L (46-116); ANION GAP 7 (8-16); ASPARTATE AMINO TRANSFERASE 17 U/L (10-37); BILIRUBIN,TOTAL 0.4 MG/DL (0.1-1.0); BLOOD UREA NITROGEN 8 MG/DL (7-18); C-REACTIVE PROTEIN 5.43 MG/DL (0.0-0.5); CALCIUM 8.1 MG/DL (8.5-10.1); CHLORIDE 105 MMOL/L (99-107); CREATININE 1.15 MG/DL (0.60-1.10); FERRITIN 168 NG/ML (26-388); GLUCOSE 133 MG/DL (70-104); MAGNESIUM 1.7 MG/DL (1.5-2.4); POTASSIUM 4.4 MMOL/L (3.5-5.1); SODIUM 139 MMOL/L (135-145); TOTAL CARBON DIOXIDE 27.5 MMOL/L (24-32); eCRCL 104 ML/MIN; eGFR 75 ML/MIN
[2025-03-31 06:00] VITALS: BP 128/80; PULSE 71; RESP 18; TEMP 98; O2SAT 93
[2025-03-31] MEDS ORDERED: methylPREDNISolone sod succ 125mg/2ml vial IV SCH (08:00)
[2025-03-31] MEDS: K and/or MAG REPLACEMENT MC SCH (08:00)
[2025-03-31 09:38] LABS: TOTAL PROTEIN,URINE RANDOM 11.8 MG/DL
[2025-03-31 10:00] VITALS: BP 124/79; PULSE 108; RESP 17; TEMP 96.7; O2SAT 94
[2025-03-31] MEDS: phenazopyridine 100mg tablet PO SCH (12:59)
[2025-03-31 16:01] VITALS: RESP 18; O2SAT 94
[2025-03-31 18:00] VITALS: BP 137/82; PULSE 106; RESP 17; TEMP 97.8; O2SAT 96
[2025-03-31] MEDS: lactobacillus rhamnosus 10,000 MMU CELLS/CAPSULE PO SCH (19:35)
[2025-03-31 20:00] VITALS: RESP 17; O2SAT 96
--- NOTE | 2025-03-31 20:30 | PROGRESS NOTE ---
Daily Progress Note Providers to CC ~ Antibiotic Timeout Antibiotic Ordered?: Yes Subjective The patient feels better- I instructed the patient's RN to strain urine for kidney stones, Objective Vital Signs Date Time Temp Pulse Resp B/P (MAP) Pulse Ox O2 Delivery O2 Flow Rate FiO2 03/31/25 18:00 97.8 106 17 137/82 (100) 96 Room Air 03/30/25 23:30 0.0 Result Diagram: 03/31/25 0408 03/31/25 040 Gen. No acute distress alert and oriented 4 Lungs clear to ascultation bilaterally, no wheezes rales or rhonchi appreciated Heart normal sinus rhythm no murmurs rubs or clicks noted Abdomen soft nontender bowel sounds are normoactive Lower extremities no clubbing cyanosis, nor edema appreciated bilaterally Problem\Assessment\Plan # right-sided kidney stone- continue IV fluids Tamsulosin IV Rocephin # bacterial pneumonia covering both Gram-positive and Gram-negative microorganisms Continue IV Rocephin Continue p.o. azithromycin # cix-jczvftr-sxjvyuvfy diabetes mellitus Hemoglobin A1c 7.0 Continue monitor daily labs # microcytic anemia- Secondary to iron-deficiency IV Venofer Date of Service: March 31, 2025 Billing Provider: AURA OSWALD DO Common Visit Codes: 92160-QIMFQYXACF INP/OBS CARE(HIGH) AURA OSWALD DO March 31, 2025 20:30
[2025-03-31 21:02] LABS: CHOL/HDL RATIO 4.4 (0.00-4.99); CHOLESTEROL 111 MG/DL (0-200); HDL CHOLESTEROL 25 MG/DL (35-60); LDL CHOLESTEROL 78 MG/DL (50-100); TRIGLYCERIDES 59 MG/DL (20-135)
[2025-03-31 22:00] VITALS: BP 128/80; PULSE 92; RESP 20; TEMP 97.7; O2SAT 95
[2025-03-31] MEDS: iron sucrose complex injection 500 MG in normal saline 250ml IV soln 250 ML IV ONE (22:22)
[2025-04-01 04:24] LABS: BASOPHILS % (AUTO) 0.1 % (0-1); EOSINOPHILS % (AUTO) 0 % (0-6); HEMATOCRIT 37.6 % (42.0-52.0); HEMOGLOBIN 12.4 g/dl (14.0-17.9); LYMPHOCYTES # (AUTO) 1.7 X10'3 (1.1-4.8); LYMPHOCYTES % (AUTO) 11.1 % (21-51); MEAN CORPUSCULAR HEMOGLOBIN 25.8 PG (27.0-31.0); MEAN PLATELET VOLUME 8.6 FL (7.4-10.4); MONOCYTES # (AUTO) 1.4 X10'3 (0-0.9); MONOCYTES % (AUTO) 9.1 % (2-12); NEUTROPHILS # (AUTO) 12.1 X10'3 (1.8-7.7); NEUTROPHILS % (AUTO) 79.7 % (42-75); PLATELET COUNT 329 X10'3 (140-440); RED BLOOD COUNT 4.81 X10'6 (4.70-6.10); RED CELL DISTRIBUTION WIDTH 13.6 % (11.5-14.5); WHITE BLOOD COUNT 15.1 X10'3 (4.5-11.0)
[2025-04-01 04:51] LABS: ALANINE AMINOTRANSFERASE 25 U/L (12-78); ALBUMIN 2.9 G/DL (3.4-5.0); ALBUMIN/GLOBULIN RATIO 0.7 (1.1-1.5); ALKALINE PHOSPHATASE 76 IU/L (46-116); ANION GAP 8 (8-16); ASPARTATE AMINO TRANSFERASE 11 U/L (10-37); BILIRUBIN,TOTAL 0.2 MG/DL (0.1-1.0); BLOOD UREA NITROGEN 14 MG/DL (7-18); BUN/CREATININE RATIO 14.4 (10.0-20.0); CALCIUM 8.6 MG/DL (8.5-10.1); CHLORIDE 105 MMOL/L (99-107); CREATININE 0.97 MG/DL (0.60-1.10); GLUCOSE 245 MG/DL (70-104); POTASSIUM 4.4 MMOL/L (3.5-5.1); SODIUM 140 MMOL/L (135-145); TOTAL CARBON DIOXIDE 26.8 MMOL/L (24-32); TOTAL PROTEIN 7.1 G/DL (6.4-8.2); eCRCL 123 ML/MIN; eGFR > 90 ML/MIN
[2025-04-01 06:00] VITALS: BP 131/78; PULSE 78; RESP 20; TEMP 97; O2SAT 98
[2025-04-01 08:00] VITALS: RESP 17; O2SAT 96
[2025-04-01] MEDS: azithromycin 250mg tablet PO SCH (09:02)
[2025-04-01] MEDS: CefTRIAXone/D5W-Rocephin 1gm 50 ML IV SCH (09:03)
[2025-04-01] MEDS ORDERED: CEFD300C3 PO (13:27)
--- NOTE | 2025-04-01 14:59 | CONSULTATION REPORT ---
History of Present Illness Providers to CC ~ Reason for Admit\Admit Dx: Right flank pain, right ureteral stone Refering MD: Dr. Napier History of Present Illness 29yo M with history of kidney stones once before presented with right abdominal/flank pain. CT showed a 1-2mm right distal ureteral stone with mild hydronephrosis as well as concern for pneumonia. He does endorse cough and chest congestion. He was admitted and started on antibiotics. He reports improvement in pain since yesterday and he thinks he passed the stone. Evaluation of his urine shows a tiny speck which might be the 1-2mm stone. He is not requiring pain medication today. Denies fever/chills. His WBC did increase today to 15 from 9-10 prior. Creatinine 0.97 from 1.15 yesterday. UA negative for infection. Allergies: Coded Allergies: No Known Allergies (Unverified , 03/30/25) Home Medications Home Medications Active Cefdinir* (Cefdinir) 300 Mg Capsule 1 Cap PO Q12H Ondansetron Odt (Ondansetron HCl) 4 Mg Tab.rapdis 1 Tab PO Q6H PRN PRN 5 Days [place] 5/325 MG (Acetaminophen/Hydrocodone Bitart) 5 Mg/325 Mg Tablet 1 Tab PO Q6H PRN Past Medical History Medical History Comment kidney stones Past Surgical History Surgical History Comment noncontributory Past Family History Family History Comment noncontributory Past Social History Social History Comment noncontributory Physical Exam Last Vital Signs Recorded: Temperature: 97.0, Source: Temporal, Heart Rate: 78, Respiratory Rate: 20, BP: 131/78, Pulse Oximetry: 98, Weight: 116.850 Results Diagram Lab Result Diagram: 04/01/25 0407 04/01/25 0407 Assessment/Plan Problems/Diagnosis: (1) Ureteral stone with hydronephrosis Assessment & Plan: 29yo M presented with right abd/flank pain, cough, found to have small 1-2mm right distal ureteral stone with mild hydro, and pneumonia - AFVSS - WBC 15 today from 9-10 - Creatinine 0.9 from 1.1 - UA negative for infection - Abd/flank pain improved/resolved today and he likely passed the stone. Recommend sending stone for analysis - Will arrange outpatient follow up in a few months for metabolic stone workup and renal US for surveillance KENZIE OWUSU MD April 01, 2025 14:59
--- NOTE | 2025-04-01 21:32 | DISCHARGE SUMMARY ---
Discharge Summary Providers to CC ~ Discharge Summary Admission Diagnosis: flank pain Hospital Course DATE OF ADMISSION: 03/30/2025 DATE OF DISCHARGE: 04/01/2025 Discharge Diagnosis\\Comment: Right-sided kidney stone, bacterial pneumonia covering both Gram-positive Gram- negative microorganisms, vfy-fkwbxig-wrwaitjcl diabetes mellitus, iron- deficiency anemia Operations\\Procedures: None Consultants: Dr. Cleo Marshall urologist Complications: None Condition on DC: Stable New Medications: Cefdinir* (Cefdinir*) 300 Mg Capsule 1 CAP PO Q12H, #10 CAP Continued Medications: Hydrocodone Bit/Acetaminophen 5/325 MG ([place] 5/325 MG) 5 Mg/325 Mg Tablet 1 TAB PO Q6H PRN for pain, #14 TAB ONDANSETRON ODT 4mg tablet (Ondansetron Odt) 4 Mg Tab.rapdis 1 TAB PO Q6H PRN PRN for nausea/vomiting for 5 Days, #20 TAB 0 Refills Discontinued Medications: Ciprofloxacin HCl (Cipro) 500 Mg Tablet 1 TAB PO Q12H for 7 Days, #14 TAB Metronidazole* (Flagyl*) 500 Mg Tablet 1 TAB PO Q8H for 7 Days, #21 TAB Discharge Summary: The patient was admitted by resident physician BREN Holloway under the supervision of YANI Henry MD with the following HPI:"29-year-old male patient without significant past medical history came to the hospital with chief complaint of right flank pain. The patient endorses that approximately 1- 1/2 week ago he started having pain localized in the right lower abdomen, sharp type, 8/10 in intensity, without radiation reason for which she decided to come to the emergency department. At that time CT scan was obtained due to concern of acute appendicitis with negative result. The patient was discharged home with pain medication. After two days with the resolution of symptoms the patient decided to come back again to the emergency department, another CT scan was obtained the patient was diagnosed with bacterial colitis reason for which the patient was discharged with antibiotics and pain medication based on c iprofloxacin and metronidazole. After seven days of treatment with the antibiotics the patient did not report any improvement, associated to his pain the patient now endorses pain localized in the right flank with radiation to the right testicle, 10/10 in intensity, sharp type, associated to that the patient also endorses some pain with micturition. The patient currently denies any chest pain, shortness of breath, palpitations. As per patient he has not been sexually active for three years." Patient had a abdominal and pelvic CT scan that demonstrated 1-2 mm calculus in the distal right ureter causing mild right hydronephrosis the patient also had mild wall thickening enhancement of the terminal ileum which could be infectious or inflammatory terminal ileitis the patient's abdominal symptoms had resolved. The patient was evaluated by Dr. Cleo Marshall urologist who recommended follow up in outpatient setting with Urology in three months and a repeat ultrasound. The patient had patchy airspace opacities in the left mid and lower lungs which could represent a pneumonia the patient has been on Rocephin and azithromycin during hospitalization and discharged with a prescription for cefdinir 300 mg p.o. b.i.d. for additional five days and recommendations to obtain [id number] probiotic. Patient also has iron-deficiency anemia with a serum iron 17 a TIBC of 0211 and % saturation of 8% the patient received IV Venofer and recommended to take xrtp-rfb-wtfqrkf iron with a vitamin-C Gen. No acute distress alert and oriented 4 Lungs clear to ascultation bilaterally, no wheezes rales or rhonchi appreciated Heart normal sinus rhythm no murmurs rubs or clicks noted Abdomen soft nontender bowel sounds are normoactive Lower extremities no clubbing cyanosis, nor edema appreciated bilaterally The patient felt ready to be discharged and was medically cleared to be discharged on 04/01/2025 The patient was seen and evaluated on day of discharge. Time spent on discharge 35 minutes *Problems/Diagnosis: (1) Ureteral stone with hydronephrosis Total Time Spent on D/C: > 30 Minutes Date of Service: April 01, 2025 Billing Provider: AURA OSWALD DO Common Visit Codes: 40260-LBR/OBS DISCH DAY >30min AURA OSWALD DO April 01, 2025 21:31
== END 2025-04-01 15:45 | disposition home or self-care (01) | DRG 693 ==
LOC: ER 17:36 → SUR 3N 22:14
PROVIDERS: ADMIT Internal Medicine Pulmonary Disease; ATTEND Family Medicine
PROC: BW211ZZ Computerized Tomography (CT Scan) of Abdomen and Pelvis using Low Osmolar Contrast (ICD-10-PCS; principal; 2025-03-30)
DX: N13.2 Hydronephrosis with renal and ureteral calculous obstruction (principal); J15.9 Unspecified bacterial pneumonia; A09 Infectious gastroenteritis and colitis, unspecified; N17.9 Acute kidney failure, unspecified; R16.2 Hepatomegaly with splenomegaly, not elsewhere classified; D50.9 Iron deficiency anemia, unspecified; E11.65 Type 2 diabetes mellitus with hyperglycemia; Z79.899 Other long term (current) drug therapy
CPT/HCPCS: 36415; 71045; 74177; 80048; 80053; 80061; 81001; 82570; 82728; 83036; 83540; 83550; 83605; 83735; 83930; 83935; 84145; 84156; 84300; 84540; 85025; 85651; 86140; 87040; 87081; 87207; G0378; J0456; J0696; J1756; J2270; J2405; J2919; J7030; J7050; Q9967